=== PATIENT | male | born 1990 | race American Indian/Alaskan Native ===

== ENCOUNTER 2020-10-31 19:52 | Emergency (ER) | payer SELFPAY ==
[2020-10-31 21:40] VITALS: BP 106/92
--- NOTE | 2020-11-01 01:34 | Emergency Department Report ---
- General Chief Complaint: Upper Respiratory Infection Stated Complaint: COUGH,FEVER Source: patient Mode of arrival: Ambulatory Limitations: No Limitations - History of Present Illness Initial Comments: Patient is a 30-year-old -French male with no past medical history presents to the ED with complaint of acute onset persistent nasal and sinus congestion, persistent frontal sinus pressure and persistent dry cough for the last 2 days. 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 Patient states that no one else at work has had similar symptoms, and that nobody else among his friends or family have had similar symptoms. Patient denies dizziness, syncope, fever, chills, nausea, vomiting, diarrhea, dysuria, urinary frequency and urgency, chest pain, shortness of breath, sore throat, abdominal pain, change in vision or headache. MD Complaint: cough, rhinorrhea, nasal congestion, sinus pain -: Sudden, days(s) (2) Severity: moderate Quality: dull, aching Consistency: constant Improves With: OTC cold medicine Worsens With: other (Working in a cold environment) Associated Symptoms: denies other symptoms, rhinorrhea, nasal congestion, cough. denies: fever, chills, myalgias, diaphoresis, headache, sore throat, stiff neck, chest pain, shortness of breath, abdominal pain, nausea, vomiting, diarrhea, dysuria, rash, confusion, right sweats, weight loss, hoarseness Treatments Prior to Arrival: "cold medicine" - Related Data Previous Rx's Medication Instructions Recorded Last Taken Type Azithromycin [Zithromax Z-JACEK] 250 mg PO DAILY #6 tablet 11/01/20 Unknown Rx Benzonatate [Tessalon Perles] 100 mg PO Q8HR PRN #30 capsule 11/01/20 Unknown Rx Cetirizine HCl [Zyrtec 10mg tab] 10 mg PO DAILY #30 tablet 11/01/20 Unknown Rx Ibuprofen [Motrin] 600 mg PO Q8H PRN #24 tablet 11/01/20 Unknown Rx ED Review of Systems ROS: Stated complaint: COUGH,FEVER Other details as noted in HPI Constitutional: denies: chills, fever Eyes: denies: eye pain, eye discharge, vision change ENT: congestion, other (Frontal sinus pressure). denies: ear pain, throat pain Respiratory: cough (Dry cough). denies: shortness of breath, wheezing Cardiovascular: denies: chest pain, palpitations Endocrine: no symptoms reported Gastrointestinal: denies: abdominal pain, nausea, diarrhea Genitourinary: denies: urgency, dysuria Musculoskeletal: denies: back pain, joint swelling, arthralgia Skin: denies: rash, lesions Neurological: denies: headache, weakness, paresthesias Psychiatric: denies: anxiety, depression Hematological/Lymphatic: denies: easy bleeding, easy bruising ED Past Medical Hx - Medications Home Medications: Home Medications Medication Instructions Recorded Confirmed Last Taken Type Azithromycin [Zithromax Z-JACEK] 250 mg PO DAILY #6 tablet 11/01/20 Unknown Rx Benzonatate [Tessalon Perles] 100 mg PO Q8HR PRN #30 capsule 11/01/20 Unknown Rx Cetirizine HCl [Zyrtec 10mg tab] 10 mg PO DAILY #30 tablet 11/01/20 Unknown Rx Ibuprofen [Motrin] 600 mg PO Q8H PRN #24 tablet 11/01/20 Unknown Rx ED Physical Exam - General Limitations: No Limitations General appearance: alert, in no apparent distress - Head Head exam: Present: atraumatic, normocephalic, normal inspection - Eye Eye exam: Present: normal appearance, PERRL, EOMI Pupils: Present: normal accommodation - ENT ENT exam: Present: normal orophraynx, mucous membranes moist, TM's normal bilaterally, normal external ear exam, other (Grossly congested nasal passages) - Neck Neck exam: Present: normal inspection, full ROM - Respiratory Respiratory exam: Present: normal lung sounds bilaterally. Absent: respiratory distress, wheezes, rales, rhonchi, chest wall tenderness, accessory muscle use, decreased breath sounds, prolonged expiratory - Cardiovascular Cardiovascular Exam: Present: regular rate, normal rhythm, normal heart sounds. Absent: systolic murmur, diastolic murmur, rubs, gallop - GI/Abdominal GI/Abdominal exam: Present: soft, normal bowel sounds. Absent: tenderness, guarding, rebound, hyperactive bowel sounds - Extremities Exam Extremities exam: Present: normal inspection, full ROM, normal capillary refill. Absent: tenderness - Back Exam Back exam: Present: normal inspection, full ROM. Absent: tenderness, CVA tenderness (R), muscle spasm, paraspinal tenderness - Neurological Exam Neurological exam: Present: alert, oriented X3, CN II-XII intact, normal gait, reflexes normal - Psychiatric Psychiatric exam: Present: normal affect, normal mood - Skin Skin exam: Present: warm, dry, intact, normal color. Absent: rash ED Course Vital Signs 10/31/20 21:38 Temperature 98.3 F Pulse Rate 65 Respiratory 16 Rate Blood Pressure 106/92 [Left] O2 Sat by Pulse 98 Oximetry ED Medical Decision Making - Medical Decision Making This is a 30-year-old -French male with no past medical history presents to the ED with complaint of acute onset persistent nasal and sinus congestion, persistent frontal sinus pressure and persistent dry cough for the last 2 days. 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 Patient states that no one else at work has had similar symptoms, and that nobody else among his friends or family have had similar symptoms. In the ED, patient is alert and oriented x3 and is not in distress with normal vital signs. Based on the history and physical exam findings, the patient's symptoms are likely due to acute upper respiratory infection versus bronchitis. Patient was discharged home on medications and advised to follow-up with his primary care physician in 7 to 10 days for reevaluation or return to the ED immediately if symptoms get worse. - Differential Diagnosis URI; sinusitis; bronchitis; allergic rhinitis Critical care attestation.: If time is entered above; I have spent that time in minutes in the direct care of this critically ill patient, excluding procedure time. ED Disposition Clinical Impression: Acute upper respiratory infection Acute bronchitis Qualifiers: Bronchitis organism: other organism Qualified Code(s): J20.8 - Acute bronchitis due to other specified organisms Disposition: DC-01 TO HOME OR SELFCARE Is pt being admited?: No Does the pt Need Aspirin: No Condition: Stable Instructions: Acute Bronchitis (ED), Upper Respiratory Infection, Adult, [id number], Acute Bronchitis, Adult, [id number] Additional Instructions: Take medication with food, drink plenty of fluids and follow-up with your primary care physician in 5 to 7 days for reevaluation. Return to the ED immediately if symptoms get worse Prescriptions: Ibuprofen [Motrin] 600 mg PO Q8H PRN #24 tablet PRN Reason: Pain Benzonatate [Tessalon Perles] 100 mg PO Q8HR PRN #30 capsule PRN Reason: Cough Azithromycin [Zithromax Z-JACEK] 250 mg PO DAILY #6 tablet Cetirizine HCl [Zyrtec 10mg tab] 10 mg PO DAILY #30 tablet Referrals: [facility] [Provider Group] - 3-5 Days Forms: Work/School Release Form(ED) Time of Disposition: 01:34 Print Language: [place]
== END 2020-11-01 01:50 | disposition home or self-care (01) ==
LOC: ED 19:52
DX: J06.9 Acute upper respiratory infection, unspecified (principal); J20.9 Acute bronchitis, unspecified; Z79.899 Other long term (current) drug therapy
CPT/HCPCS: 99282